=== PATIENT | male | born 1980 | race Caucasian/White ===

== ENCOUNTER 2020-09-17 10:23 | Emergency (ER) | payer OTHER ==
--- NOTE | 2020-09-17 10:39 | EDM.PDOC ---
ED HPI GENERAL MEDICAL PROBLEM - General Chief Complaint: Upper Extremity Injury/Pain Stated Complaint: FALL RT HAND PAIN Time Seen by Provider: 09/17/20 10:37 Source of Information: Reports: Patient History Limitations: Reports: No Limitations - History of Present Illness INITIAL COMMENTS - FREE TEXT/NARRATIVE: 40-year-old male presents to the ED for evaluation of an injury to his right hand that occurred about 0800 hrs. this morning. He states he got tripped up and fell on the concrete sidewalk and injured his right dorsal hand primarily over the first MCP joint and soft tissues between the thumb and index finger dorsally. There is also mild swelling in the thenar eminence. He denies any other injuries. There are no open wounds. Onset: Today, Sudden Onset Date: 09/17/20 Onset Time: 08:00 Duration: Hour(s):, Getting Worse Location: Reports: Upper Extremity, Right Quality: Reports: Ache (Right dorsal hand injury radial aspect), Throbbing Severity: Moderate Improves with: Reports: Rest Worsens with: Reports: Movement (Went of the thumb makes the pain much worse.) Context: Reports: Trauma (And fell with blunt trauma to the right hand this morning.). Denies: Activity, Exercise, Lifting, Sick Contact Associated Symptoms: Reports: No Other Symptoms. 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.) Right Hand Pain Score (Numeric/FACES): 2 - Related Data Allergies Allergy/AdvReac Type Severity Reaction Status Date / Time No Known Allergies Allergy Verified 09/17/20 10:32 Home Meds: Home Meds Acetaminophen/oxyCODONE [Percocet 325-5 MG] 1 - 2 each PO Q4H PRN #20 tab 09/17/20 [Rx] Social & Family History - Living Situation & Occupation Living situation: Reports: Single Occupation: Employed Review of Systems - Review of Systems Review Of Systems: See Below Constitutional: Reports: No Symptoms Eyes: Reports: Glasses Ears: Reports: No Symptoms Nose: Reports: No Symptoms Mouth/Throat: Reports: No Symptoms Respiratory: Reports: No Symptoms Cardiovascular: Reports: No Symptoms GI/Abdominal: Reports: No Symptoms Genitourinary: Reports: No Symptoms Musculoskeletal: Reports: No Symptoms Skin: Reports: No Symptoms Neurological: Reports: No Symptoms Psychiatric: Reports: No Symptoms ED EXAM, GENERAL - Physical Exam Exam: See Below Exam Limited By: No Limitations General Appearance: Alert, WD/WN, No Apparent Distress, Other (Temperature is 36.5. Heart rate 59 and sinus respiratory 16 BP 125/85 pulse ox 99% room air) Eye Exam: Bilateral Eye: Normal Inspection, PERRL Throat/Mouth: Normal Inspection, Normal Lips, Normal Teeth, Normal Oropharynx Head: Atraumatic, Normocephalic, Other Neck: Normal Inspection, Supple, Non-Tender (No overt signs of any head or facial trauma.), Full Range of Motion. No: Lymphadenopathy (L), Lymphadenopathy (R), Thyromegaly Respiratory/Chest: No Respiratory Distress, Lungs Clear, Normal Breath Sounds, No Accessory Muscle Use Cardiovascular: Normal Peripheral Pulses, Regular Rate, Rhythm, No Edema, No Ga llop, No Murmur, No Rub Peripheral Pulses: 3+: Carotid (L), Carotid (R), Radial (L), Radial (R), Posterior Tibial (L), Posterior Tibial (R), Dorsalis Pedis (L), Dorsalis Pedis (R) GI/Abdominal: Soft, Non-Tender, No Organomegaly, No Abnormal Bruit, No Mass, Pelvis Stable. No: Guarding, Rigid, Rebound Extremities: Other (Examination of the right hand shows marked swelling over the dorsal radial aspect of the hand particularly between the thumb and index finger dorsally. There is pain and swelling over the first MCP joint dorsally as well and minimal swelling of the thenar eminence. He has very limited ability to try and oppose his right thumb to any of his fingers due to pain and swelling. Good radial pulses.) Neurological: Alert, Oriented, CN II-XII Intact, Normal Cognition, Normal Gait Psychiatric: Normal Affect, Normal Mood Skin Exam: Warm, Dry, Intact, Normal Color, No Rash Course - Vital Signs Last Recorded V/S: Last Vital Signs Temp 36.5 C 09/17/20 10:34 Pulse 59 L 09/17/20 10:34 Resp 16 09/17/20 10:34 BP 125/85 09/17/20 10:34 Pulse Ox 99 09/17/20 10:34 - Orders/Labs/Meds Meds: Medications Discontinued Medications Generic Name Dose Route Start Last Admin Trade Name Freq PRN Reason Stop Dose Admin Hydrocodone Bitart/Acetaminophen 1 tab 09/17/20 11:18 09/17/20 11:32 [place] 325-5 Mg PO 1 tab Q4H PRN Administration Pain (moderate 4-6) Ibuprofen 600 mg 09/17/20 11:18 09/17/20 11:32 Motrin PO 09/17/20 11:19 600 mg ONETIME ONE Administration - Radiology Interpretation Free Text/Narrative:: 40-year-old male reports he got tripped up and fell this morning on outstretched right hand. Injured it on concrete. Increased swelling over the dorsal radial aspect of the right hand particular over the first MCP joint. He has limited mobility of his thumb at this time. Minimal swelling of the thenar eminence. No open wounds. Plan three-view x-ray of the right hand to be obtained. - Re-Assessments/Exams Free Text/Narrative Re-Assessment/Exam: 09/17/20 11:19 spray of the right hand reveals a comminuted fracture of the distal aspect of the first metacarpal with malposition and intra articular involvement. It appears that he is going to need surgical pinning. I will discuss this with a hand surgeon at [facility] in [place]. Patient will be immobilized in a thumb spica splint until surgery can be arranged. Given Motrin 600 mg p.o. with 1 [place] 5/325 mg tablet at this time for pain relief. 09/17/20 11:32 I did speak with orthopedic surgeon --and surgeon at [facility] in [place]. He agrees the patient is going to need fixation of the comminuted fracture distal first metacarpal right hand. He will see him on approximately 1300 hrs. central standard time on September 23. And is to be n.p.o. after he 0400 hrs. in the morning that day. In the meantime the patient would placed in a thumb spica splint through the ED and discharged home on percocet 5/325 mg tablets 1 or 2 every 4-6 hours needed for pain relief in combination with Motrin 600 mg every 6 hours. He will elevate and ice. Departure - Departure Time of Disposition: 11:46 Disposition: Home, Self-Care 01 Condition: Fair Clinical Impression: First metacarpal bone fracture Qualifiers: Encounter type: initial encounter Fracture type: closed Metacarpal location: base Fracture alignment: displaced Laterality: right - Discharge Information *PRESCRIPTION DRUG MONITORING PROGRAM REVIEWED*: Not Applicable *COPY OF PRESCRIPTION DRUG MONITORING REPORT IN PATIENT MICHAELA: Not Applicable Prescriptions: Acetaminophen/oxyCODONE [Percocet 325-5 MG] 1 - 2 each PO Q4H PRN #20 tab PRN Reason: pain relief Instructions: Cast or Splint Care, Adult, [id number] Referrals: PCP,None [Primary Care Provider] - Forms: ED Department Discharge Additional Instructions: Evaluation in the emergency room today in regards to a fall outside this morning with injury to your right dorsal hand and thumb. X-rays confirm a comminuted fracture that is mildly displaced of the distal portion of the first metacarpal bone of your hand. This is going to require surgical repair. You were th erefore placed in a Ortho-Glass thumb spica splint in the emergency room to maintain position of the fractured bone. You are to follow-up with hand surgeon [facility] at 1300 hrs. central standard time which is 1200 hrs. [place] standard time on September 23. Nothing to eat or drink after 0400 hours in the morning that day in preparation for surgery. You will be released from the waiting room that day. You will need someone to drive you home. Follow-up will be done by Dr. Hayes. The interim elevate your right hand to heart level as much as possible over the weekend to minimize further swelling. May use Motrin 600 mg with 1 tablet of Percocet 5/325 mg every 4-6 hours necessary for pain relief if it is still hurting badly you can take 2 of the Percocet tablets at the same time without Motrin for pain relief. Address for bone and joint clinic in [place] is [address] [place] [address]. Sepsis Event Note (ED) - Evaluation Sepsis Screening Result: No Definite Risk - Focused Exam Vital Signs: Vital Signs Temp Pulse Resp BP Pulse Ox 09/17/20 10:34 36.5 C 59 L 16 125/85 99
[2020-09-17] MEDS ORDERED: Ibuprofen 600 MG Tab PO ONE (11:18)
[2020-09-17] MEDS ORDERED: Acetaminophen/HYDROcodone 325-5 MG Tab PO PRN (11:18)
--- NOTE | 2020-09-17 12:33 | CR ---
PROCEDURE INFORMATION: Exam: XR Right Hand Exam date and time: 09/17/2020 10:47 AM Age: 40 years old Clinical indication: Pain; Other: Tripped and fell on concrete this morning. Injury to dorsal right hand over 1st mcp. TECHNIQUE: Imaging protocol: XR Right hand. Views: 3 or more views. COMPARISON: No relevant prior studies available. FINDINGS: Bones/joints: Comminuted mildly displaced intra-articular fracture of the base and shaft of the right 1st metacarpal with associated soft tissue swelling. Soft tissues: Soft tissue swelling about the base of the right thumb IMPRESSION: Comminuted mildly displaced intra-articular fracture of the base and shaft of the right 1st metacarpal with associated soft tissue swelling. Thank you for allowing us to participate in the care of your patient. Dictated and Authenticated by: Summer Quesada MD 09/17/2020 12:09 PM Central Time ([place] & [place]) LINUS
== END 2020-09-17 12:07 | disposition home or self-care (01) ==
LOC: JD.ED 10:23
DX: S62.231A Other displaced fracture of base of first metacarpal bone, right hand, initial encounter for closed fracture (principal); W01.0XXA Fall on same level from slipping, tripping and stumbling without subsequent striking against object, initial encounter
CPT/HCPCS: 29125; 73130; 99283; A9270

== ENCOUNTER 2020-09-19 18:47 | Emergency (ER) | payer OTHER ==
--- NOTE | 2020-09-19 19:35 | EDM.PDOC ---
ED HPI GENERAL MEDICAL PROBLEM - General Chief Complaint: Upper Extremity Injury/Pain Stated Complaint: SPLINT AND BANDAGE TURNING FINGERS BLUE ON R HAND Time Seen by Provider: 09/19/20 19:06 Source of Information: Reports: Patient History Limitations: Reports: No Limitations - History of Present Illness INITIAL COMMENTS - FREE TEXT/NARRATIVE: 40-year-old male presents to the ED with concerns about increased pain swelling and numbness and tingling in his right hand. Patient was seen 2 days ago by me after he slipped and fell on concrete surface and x-rays revealed a closed comminuted fracture of the proximal right first metacarpal bone. Surgery is going to be required to pin this injury as it is intra-articular. He has a scheduled appointment with Dr. Hayes orthopedic surgeon at [facility] on Tuesday at 1300 hrs. central standard time. Patient currently is in a Ortho-Glass thumb spica splint. He feels numbness and tingling in all of his fingers and thumb. Did go to work today and feels that he may have had his hand below the level of his heart most of the day with increased swelling. Onset: Gradual Onset Date: 09/17/20 (Initial injury occurred on September 17 at 0800 hrs.) Duration: Day(s):, Getting Worse (Feeling increased swelling numbness and tingling right hand and fingers.) Location: Reports: Upper Extremity, Right (Has a comminuted fracture proximal aspect of right) Quality: Reports: Ache ( first metacarpal bone that is going to require surgical fixation), Throbbing, Other (Numbness and tingling in all of his distal fingertips.) Severity: Moderate Improves with: Reports: Other (It improved a good deal even over the 20 minutes after I remove the Kris wraps from his splint. The splint did not appear to be too tight. His capillary return to all of his fingertips is 1 second) Worsens with: Reports: Other Context: Reports: Trauma (And tripped and fell on a concrete surface while walking to work on TuesdaySeptember 17 suffering a fracture of the right first metacarpal). 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) (Patient has been using Motrin and pain medication as needed) - Related Data Allergies Allergy/AdvReac Type Severity Reaction Status Date / Time No Known Allergies Allergy Verified 09/17/20 10:32 Home Meds: Home Meds Acetaminophen/oxyCODONE [Percocet 325-5 MG] 1 - 2 each PO Q4H PRN #20 tab 09/17/20 [Rx] Past Medical History HEENT History: Reports: Impaired Vision Cardiovascular History: Reports: None Respiratory History: Reports: None Gastrointestinal History: Reports: None Genitourinary History: Reports: None Musculoskeletal History: Reports: None Neurological History: Reports: None Psychiatric History: Reports: None Endocrine/Metabolic History: Reports: None Hematologic History: Reports: None Immunologic History: Reports: None Oncologic (Cancer) History: Reports: None Dermatologic History: Reports: None - Infectious Disease History Infectious Disease History: Reports: Chicken Pox - Past Surgical History Head Surgeries/Procedures: Reports: None HEENT Surgical History: Reports: None Neurological Surgical History: Reports: None Musculoskeletal Surgical History: Reports: None Social & Family History - Family History Family Medical History: No Pertinent Family History Cardiac: Reports: Hypertension - Tobacco Use Tobacco Use Status *Q: Never Tobacco User - Caffeine Use Caffeine Use: Reports: Coffee - Recreational Drug Use Recreational Drug Use: No - Living Situation & Occupation Living situation: Reports: Single Occupation: Employed Review of Systems - Review of Systems Review Of Systems: See Below Constitutional: Reports: No Symptoms Eyes: Reports: Glasses Ears: Reports: No Symptoms Nose: Reports: No Symptoms Mouth/Throat: Reports: No Symptoms Respiratory: Reports: No Symptoms Cardiovascular: Reports: No Symptoms GI/Abdominal: Reports: No Symptoms Genitourinary: Reports: No Symptoms Musculoskeletal: Reports: No Symptoms Skin: Reports: Bruising (Palmar aspect of right hand and dorsal aspect of right fingers 1 through 5) Neurological: Reports: Numbness, Tingling (Numbness and tingling in all of his fingertips right hand) Psychiatric: Reports: No Symptoms ED EXAM, GENERAL - Physical Exam Exam: See Below Exam Limited By: No Limitations General Appearance: Alert, WD/WN, No Apparent Distress, Other (Temperature is 37.5. Heart rate 112 in sinus respiratory to 20 O2 sats 99% room air BP 130/101 .) Extremities: Other (Examination shows that he has good capillary return to all of his distal fingers on the right hand of 1 second. I remove the Kris wrap's that were holding the Ortho-Glass spica splint in place. There is a significant amount of bruising now with [place] palmar aspect of the right hand and dorsal aspect of all of his fingers that was not there 2 days ago. He has full range of motion of his fingers right hand without any pain.) Neurological: Alert, Oriented, CN II-XII Intact, Normal Cognition, Normal Gait, Other (He appreciates numbness and tingling in all of his fingertips) Psychiatric: Anxious Skin Exam: Warm, Dry, Intact, Ecchymosis (Good deal of ecchymoses and [place] significant swelling thenar eminence and dorsal aspect of the right hand in the distribution of the fracture site proximal first metacarpal. There is also bruising showing up now across the dorsal aspect of the proximal phalanges in the middle phalanges of all fingers.) Course - Vital Signs Last Recorded V/S: Last Vital Signs Temp 37.5 C 09/19/20 19:14 Pulse 112 H 09/19/20 19:14 Resp 20 09/19/20 19:14 BP 130/101 H 09/19/20 19:14 Pulse Ox 99 09/19/20 19:14 - Radiology Interpretation Free Text/Narrative:: 40-year-old male presents to the ED with increased swelling pain and numbness and tingling in all of his fingers post fall and fracture of proximal right first metacarpal bone 2 days ago September 17. I had seen him at that time and identified a comminuted fracture of the proximal aspect of the first metacarpal bone that is going to require surgical fixation. He has a scheduled appointment to see Dr. Hayes orthopedic surgeon at [facility] on September 24 at 1300 hrs. Today I simply remove the Kris wrap's and to evaluate the amount of swelling and bruising. There is increased bruising from my initial examination particular in the [place] of his right hand and dorsal aspects of all fingers that was not present 2 days ago. I am going to leave the Kris wraps off and review him in 20 minutes or so. - Re-Assessments/Exams Free Text/Narrative Re-Assessment/Exam: 09/19/20 19:32: Upon review the patient is feeling much improved. He is feeling less numbness and tingling and even feels there is less swelling with holding his arm upright. I simply then reevaluated his capillary return which is normal at 1 second to all fingertips. He has normal movement of his fingers. I replaced a 2 inch Kris wrap to the right hand to hold the splint in place. Patient will elevate his hand is much as possible. Swelling for the most part will have maxed out by tomorrow morning. They will start to improve by tomorrow evening. Patient reassured in this regard. He may certainly remove the Kris wrap if similar feeling reoccurs. Departure - Departure Time of Disposition: 19:31 Disposition: Home, Self-Care 01 Condition: Fair Clinical Impression: Fracture of hand excluding finger Qualifiers: Encounter type: subsequent encounter Fracture type: closed Laterality: right Fracture healing: with routine healing Qualified Code(s): S62.91XD - Unspecified fracture of right wrist and hand, subsequent encounter for fracture with routine healing - Discharge Information *PRESCRIPTION DRUG MONITORING PROGRAM REVIEWED*: Not Applicable *COPY OF PRESCRIPTION DRUG MONITORING REPORT IN PATIENT MICHAELA: Not Applicable Instructions: Cast or Splint Care, Adult, [id number] Forms: ED Department Discharge Additional Instructions: Evaluation in the emergency room tonight in regards to increased numbness and tingling and swelling right hand post fracture of the proximal right first metacarpal bone. Splint appeared to be too tight as the hand has swollen a good deal post injury. Treatment was splint released by removing the Kris wrap's for 20 minutes and you felt an improvement in sensation and pain. There is still good blood flow to all of your fingers. There is of course increased bruising and swelling particularly in the palmar aspect of your hand and the dorsal aspect of your right hand involving all of the fingers. Current numbness and tingling is due to swelling around the nerves in your hand. Elevate the hand as much as possible as discussed for the next couple of days and swelling will start to go down usually by tomorrow night. As noted you will require surgical repair with hand surgeon which is prescheduled on Tuesday at 1300 hrs. central standard time at [facility] in [place] with Dr. Hayes. Sepsis Event Note (ED) - Evaluation Sepsis Screening Result: No Definite Risk - Focused Exam Vital Signs: Vital Signs Temp Pulse Resp BP Pulse Ox 09/19/20 19:14 37.5 C 112 H 20 130/101 H 99
== END 2020-09-19 19:46 | disposition home or self-care (01) ==
LOC: SUPCPDRO 18:47 → JD.ED 18:47
DX: S62.251A Displaced fracture of neck of first metacarpal bone, right hand, initial encounter for closed fracture (principal); W01.0XXA Fall on same level from slipping, tripping and stumbling without subsequent striking against object, initial encounter; Y93.01 Activity, walking, marching and hiking
CPT/HCPCS: 99283